=== PATIENT | female | born 2000 | race Caucasian/White ===

== ENCOUNTER 2023-09-24 18:10 | Emergency (ER) | payer MEDICAID ==
[~2023-09-24] VITALS: Ht 170.2 cm; Wt 88.9 kg
[2023-09-24 18:47] VITALS: BP 128/69; PULSE 69; RESP 18; TEMP 98.1; O2SAT 100
[2023-09-24] MEDS ORDERED: BACI-418 TP (22:26)
[2023-09-24] MEDS ORDERED: NAPR-54 PO (22:26)
[2023-09-24] MEDS ORDERED: BACITRACIN OINT 500 UNITS/GM PKT TP ONE (22:30)
[2023-09-24] MEDS ORDERED: LIDOCAINE MPF 1% 10 MG/ML VIAL INJ ONE (22:30)
[2023-09-24 23:50] VITALS: BP 128/69; PULSE 69; RESP 18; TEMP 98.1; O2SAT 100
== END 2023-09-24 23:50 | disposition home or self-care (01) ==
LOC: MED 18:10
DX: S61.300A Unspecified open wound of right index finger with damage to nail, initial encounter (principal); X58.XXXA Exposure to other specified factors, initial encounter; Y93.89 Activity, other specified; Y92.89 Other specified places as the place of occurrence of the external cause; Y99.8 Other external cause status
CPT/HCPCS: 11730; 99284; J2001

== ENCOUNTER 2024-05-15 08:45 | Inpatient (IN) | payer OTHER, MEDICAID ==
[~2024-05-15] VITALS: Ht 170.2 cm; Wt 95.3 kg
[~2024-05-15 08:45] MED LIST: BACI-418 TP; NAPR-337 PO
[2024-05-15] MEDS ORDERED: METHYLERGONOVINE 0.2 MG/ML AMP IM PRN ×2 (09:25→12:50)
[2024-05-15] MEDS ORDERED: CLINDAMYCIN 900 MG in DEXTROSE 5% 100 ML IV SCH (09:25)
[2024-05-15 09:33] LABS: BASOPHILS % (AUTO) 0.2 % (0.0-2.0); EOSINOPHILS # (AUTO) 0.1 K/uL (0-0.4); HEMATOCRIT 38.8 % (36-48); HEMOGLOBIN 12.8 g/dL (12.0-16.0); LYMPHOCYTES # (AUTO) 2.1 K/uL (2.5-16.5); LYMPHOCYTES % (AUTO) 25.3 % (20.5-51.1); MEAN CORPUSCULAR HEMOGLOBIN 28 pg (27-31); MEAN CORPUSCULAR HGB CONC 33 g/dL (33-37); MEAN CORPUSCULAR VOLUME 84.4 fL (80-94); MONOCYTES # (AUTO) 0.5 K/uL (0.8-1.0); MONOCYTES % (AUTO) 5.7 % (1.7-9.3); NEUTROPHILS # (AUTO) 5.6 K/uL (1.8-7.7); NEUTROPHILS % (AUTO) 67.8 % (42.2-75.2); PLATELET COUNT (AUTO) 224 K/uL (140-450); RED CELL DISTRIBUTION WIDTH 15.7 % (11.6-13.7); WHITE BLOOD COUNT (AUTO) 8.3 K/uL (4.8-10.8)
[2024-05-15] MEDS: LACTATED RINGERS 1,000 ML IV SCH (09:46)
[2024-05-15 09:51] LABS: ALBUMIN 2.7 g/dL (3.4-5.0); ANION GAP 14.8 (8-16); CALCIUM 8.7 mg/dL (8.5-10.1); CARBON DIOXIDE 22.7 mmol/L (21-32); CREATININE 0.6 mg/dL (0.6-1.3); POTASSIUM 3.5 mmol/L (3.5-5.1); TOTAL BILIRUBIN 0.3 mg/dL (0.0-1.0); TOTAL PROTEIN, SERUM 6.9 g/dL (6.4-8.2)
[2024-05-15] MEDS ORDERED: PRETAB PO (09:54)
[2024-05-15 10:17] LABS: INR 0.85 (0.8-1.2)
[2024-05-15 11:00] LABS: APPEARANCE,URINE SLIGHTLY HAZY (CLEAR); BLOOD, URINE TRACE (NEGATIVE); COLOR,URINE YELLOW (YELLOW); PROTEIN,URINE TRACE (NEGATIVE); UGLUCOSE NEGATIVE (NEGATIVE)
[2024-05-15 11:01] LABS: BILIRUBIN,URINE NEGATIVE (NEGATIVE); UROBILINOGEN,URINE 0.2 EU/dL (0.2 - 1)
[2024-05-15 11:04] LABS: BACTERIA,URINE 1+ /HPF (None Seen); NITRITE, URINE POSITIVE (NEGATIVE)
[2024-05-15 11:05] LABS: RBC,URINE 0-5 /HPF (0-5); SQUAMOUS EPITHELIAL CELL,UR 0-3 (FEW) /LPF (0-3 (FEW))
[2024-05-15 11:09] LABS: LEUKOCYTE ESTERASE ,URINE 1+ (NEGATIVE)
[2024-05-15] MEDS: CITRIC ACID/SODIUM CITRATE 30 ML UDC PO SCH (12:11)
[2024-05-15] MEDS ORDERED: ePHEDrine 50 MG/ML VIAL ONE (12:35)
[2024-05-15] MEDS ORDERED: OXYTOCIN 10 UNITS/ML VIAL ONE ×4 (12:36)
[2024-05-15] MEDS ORDERED: PHENYLEPHRINE 10 MG/ML VIAL ONE (12:36)
[2024-05-15] MEDS ORDERED: MORPHINE PRES FREE 10 MG/10 ML AMP IV ONE (12:49)
[2024-05-15] MEDS ORDERED: TEMAZEPAM 15 MG CAP PO PRN (12:50)
[2024-05-15] MEDS ORDERED: OXYTOCIN 20 UNITS in LACTATED RINGERS 1,000 ML IV SCH (12:50)
[2024-05-15] MEDS ORDERED: MIDAZOLAM 2 MG/2 ML VIAL ONE (12:50)
[2024-05-15] MEDS ORDERED: KETAMINE 500 MG/5 ML VIAL ONE (12:50)
[2024-05-15] MEDS ORDERED: IBUPROFEN 800 MG TAB PO PRN (12:50)
[2024-05-15] MEDS ORDERED: KETOROLAC 30 MG/ML VIAL IVP PRN ×2 (12:50→15:15)
[2024-05-15] MEDS ORDERED: NEOSTIGMINE 1:1000 10 MG/10 ML VIAL ONE (12:51)
[2024-05-15] MEDS ORDERED: OXYTOCIN/0.9 % SODIUM CHLORIDE 500 ML IV SCH (13:10)
[2024-05-15] MEDS ORDERED: ONDANSETRON 4 MG/2 ML VIAL IVP PRN (13:40)
[2024-05-15] MEDS ORDERED: NALOXONE 0.4 MG/ML VIAL IVP PRN ×3 (13:40)
[2024-05-15] MEDS ORDERED: ACETAMINOPHEN 100 ML IV ONE (13:45)
[2024-05-15] MEDS ORDERED: HYDROmorphone 1 MG/ML AMP IVP PRN (13:45)
[2024-05-15] MEDS: diphenhydrAMINE 50 MG/ML VIAL IVP PRN ×2 (14:00→18:01)
[2024-05-15] MEDS ORDERED: diphenhydrAMINE 50 MG/ML VIAL ONE (14:10)
[2024-05-15] MEDS: ONDANSETRON 4 MG/2 ML VIAL IVP PRN (14:15)
[2024-05-15] MEDS: OXYTOCIN/0.9 % SODIUM CHLORIDE 500 ML IV SCH (14:33)
[2024-05-15] MEDS ORDERED: KETOROLAC 30 MG/ML VIAL IM/IVP SCH (18:00)
[2024-05-15] MEDS: DOCUSATE SOD/SENNA 50/8.6 MG 1 TAB PO SCH (21:00)
[2024-05-16 05:57] LABS: BASOPHILS % (AUTO) 0.3 % (0.0-2.0); EOSINOPHILS # (AUTO) 0.1 K/uL (0-0.4); EOSINOPHILS % (AUTO) 0.9 % (0.0-4.0); HEMATOCRIT 36.8 % (36-48); LYMPHOCYTES # (AUTO) 2.1 K/uL (2.5-16.5); LYMPHOCYTES % (AUTO) 22.1 % (20.5-51.1); MEAN CORPUSCULAR HEMOGLOBIN 28 pg (27-31); MEAN CORPUSCULAR HGB CONC 33 g/dL (33-37); MEAN CORPUSCULAR VOLUME 85.5 fL (80-94); MONOCYTES # (AUTO) 0.7 K/uL (0.8-1.0); MONOCYTES % (AUTO) 7.2 % (1.7-9.3); NEUTROPHILS # (AUTO) 6.7 K/uL (1.8-7.7); NEUTROPHILS % (AUTO) 69.5 % (42.2-75.2); PLATELET COUNT (AUTO) 198 K/uL (140-450); WHITE BLOOD COUNT (AUTO) 9.6 K/uL (4.8-10.8)
[2024-05-16] MEDS ORDERED: IBUPROFEN 800 MG TAB PO PRN (07:00)
[2024-05-16] MEDS ORDERED: oxyCODONE/APAP 5/325 MG 1 TAB TAB PO PRN (07:00)
[2024-05-16] MEDS: SIMETHICONE 80 MG TAB.CHEW PO PRN (09:14)
[2024-05-16] MEDS: oxyCODONE/APAP 5/325 MG 1 TAB TAB PO PRN (17:30)
== END 2024-05-17 17:20 | disposition home or self-care (01) | DRG 788 ==
LOC: MLD 08:45 → OBSVTOIN 10:40 → MFCC 15:05
PROVIDERS: ADMIT Obstetrics & Gynecology; ATTEND Obstetrics & Gynecology
PROC: 10D00Z1 Extraction of Products of Conception, Low, Open Approach (ICD-10-PCS; principal; 2024-05-15 12:00)
DX: O34.211 Maternal care for low transverse scar from previous cesarean delivery (principal); Z37.0 Single live birth; Z3A.39 39 weeks gestation of pregnancy
CPT/HCPCS: 36415; 80053; 81001; 85025; 85610; 85730; 86592; 86886; 86900; 86901; 87086; 87186; J0461; J1200; J2250; J2270; J2405; J2590; J2710; J3490; J7060; J7120